=== PATIENT | female | born 1930 | race Caucasian/White ===

== ENCOUNTER 2017-08-15 11:16 | Outpatient (CLI) | payer MEDICARE ==
--- NOTE | 2017-08-15 15:40 | Diagnostic Imaging Report ---
VIRIDIANA MEADOWS - KEMI [facility] [address] [facility].[address] [address] Report Submission Date: Aug 15, 2017 12:04:39 PM CDT Patient Study Name: RAJ THOMAS Date: Aug 15, 2017 11:33:00 AM CDT Modality Type: US Gender: F Description: UNILAT LTD STDY EXT VEINS : 32 Institution: [facility] Physician: VIRIDIANA MEADOWS - KEMI Examination: Ultrasound vein History: Leg discomfort Findings: Sonographic evaluation of the left lower extremity venous system from the groin to the popliteal fossa inclusive. Luminal filling defect within the proximal femoral vein extending into the popliteal vein. No compressibility. No waveforms or augmentation. Remaining venous structures demonstrate normal compressibility. No other luminal filling defects. Normal waveforms and response to augmentation in these regions. No popliteal region fluid collection. Impression: Deep venous thrombosis involving the proximal femoral vein extending into the popliteal vein. Discussed findings with Viridiana Meadows at 1203 hours on 15 August 2017 Electronically signed on Aug 15, 2017 12:04:39 PM CDT by: Neftali TREJO
== END 2017-08-15 11:17 ==
LOC: RAD 11:16
PROVIDERS: ATTEND Family Medicine
DX: R60.9 Edema, unspecified (principal)
CPT/HCPCS: 93971